=== PATIENT | female | born 1975 | race Two or more races ===

== ENCOUNTER 2025-01-29 15:46 | Emergency (ER) | payer MEDICAID, SELFPAY ==
[2025-01-29 16:20] VITALS: BP 118/72; PULSE 70; RESP 18; TEMP 36.5; O2SAT 96; BMI 37.6
--- NOTE | 2025-01-29 16:32 | XR_ITS ---
Examination: Abdomen sonogram, Limited Date and time: January 29, 2025 1641 hours INDICATIONS: Right upper abdominal pain beginning 4 days ago Technique: Real-time parr scale transabdominal sonographic images of the upper abdomen obtained. Findings: Multiple small gallstones Gallbladder 1.3 cm no edema Common bile duct 0.4 cm Pancreatic head 3.0 cm Liver 16.0 cm fatty infiltration Normal hepatopedal portal venous flow Patent IVC IMPRESSION: Cholelithiasis, negative for cholecystitis
--- NOTE | 2025-01-29 16:32 | PD.EDRME ---
Rapid Medical Screening Exam E Arrival date/time: 01/29/25 15:46 This is a case of 49 year old female came in wiht right upper abd pain for 5 days with n/v/ no diarrhea no constipation no blood in stool Chief Complaint: Abdominal Pain Time Seen by Provider: 01/29/25 16:13 Vital signs: Vital Signs Temperature 97.7 F 01/29/25 16:20 Pulse Rate 70 01/29/25 16:20 Respiratory Rate 18 01/29/25 16:20 Blood Pressure 118/72 01/29/25 16:20 Pulse Oximetry (%) 96 01/29/25 16:20 Oxygen Delivery Method Room Air 01/29/25 16:20
[2025-01-29 16:45] LABS: Basophils % (Auto) 0 % (0-2.5); Eosinophils # (Auto) 0.4 Thou/mm3 (0.0-0.5); Eosinophils % (Auto) 4 % (0-10); Hematocrit 37.6 % (36.0-46.0); Immature Granulocytes % (Auto) 1 % (0-0); Immature Granulocytes Auto 0.06 Thou/mm3 (0.00-0.00); Lymphocytes # (Auto) 2.8 Thou/mm3 (1.0-4.8); Lymphocytes % (Auto) 31 % (10-50); Mean Corpuscular HGB Conc 34.6 g/dl (31.0-37.0); Mean Corpuscular Hemoglobin 29.1 pg (25.0-35.0); Mean Corpuscular Volume 84 fL (80-100); Monocytes # (Auto) 0.8 Thou/mm3 (0.0-0.8); Monocytes % (Auto) 8 % (0-12); Neutrophils # (Auto) 5.1 Thou/mm3 (1.8-7.7); Neutrophils % (Auto) 56 % (37-80); Nucleated Red Blood Cell % 0 /100 WBC (0); Platelet Count 273 Thou/mm3 (140-440); RDW Standard Deviation 44.2 fL (36.4-46.3); Red Blood Count 4.47 Miln/mm3 (4.00-5.20)
[2025-01-29 17:05] LABS: Alanine Aminotransferase 29 U/L (10-49); Albumin, Serum 4.4 gm/dL (3.5-5.0); Albumin/Globulin Ratio 1.6 (1.2-2.2); Alkaline Phosphatase 94 U/L (46-116); Anion Gap 4 (7-16); Aspartate Amino Transferase 26 U/L (0-34); BUN/Creatinine Ratio 23 Ratio (12-20); Bilirubin,Total 0.3 mg/dL (0.3-1.2); Blood Urea Nitrogen 14 mg/dL (9-23); Calcium 8.8 mg/dL (8.3-10.6); Calcium (Corrected) 8.8 mg/dL (8.5-10.1); Carbon Dioxide 28.8 mMol/L (20.0-31.0); Chloride 107 mMol/L (98-107); Creatinine (Component) 0.6 mg/dL (0.6-1.3); Estimated Creatinine Clearance 117.4 mL/min (>60); Globulin 2.7 gm/dL (2.3-3.5); Glucose 80 mg/dL (74-106); Lipase 35 U/L (12-53); Osmolality,Calculated 278 (275-295); Potassium 3.9 mMol/L (3.4-5.1); Sodium 140 mMol/L (136-145); Total Protein 7.1 gm/dL (5.7-8.2); eGFR > 60 See Note
[2025-01-29 17:23] LABS: Collection Type, Urine Clean Catch; RBC,Urine 0 /hpf (0-3)
--- NOTE | 2025-01-29 17:38 | PD.EDABDPN ---
ED Abdominal Pain RME/HPI General Chief Complaint: Abdominal Pain Stated complaint: Abdominal pain Time seen by provider: 01/29/25 16:13 Arrival date/time: Dissection 01/29/25 15:46 This is a case of a 49-year-old female who came in in the emergency room due to the right upper quadrant pain for 3 days associated with nausea vomiting denies any diarrhea constipation or blood in stool Limitations: no limitations RME / HPI RME / HPI narrative: 01/29/25 15:46 This is a case of 49 year old female came in wiht right upper abd pain for 5 days with n/v/ no diarrhea no constipation no blood in stool Related Data Previous Rx's ?Medication ?Instructions ?Recorded hydrocodone 5 mg-acetaminophen 300 1 tab PO Q8H PRN pain #12 tabs 01/29/25 mg tablet ondansetron 4 mg disintegrating 4 mg PO Q8H PRN nausea and 01/29/25 tablet vomiting #20 tabs Allergies Allergy/AdvReac Type Severity Reaction Status Date / Time No Known Drug Allergies Allergy Verified 01/29/25 15:50 Review of Systems Constitutional Constitutional: Reports system reviewed and no additional complaints, except as documented Cardiovascular Cardiovascular: Reports system reviewed and no additional complaints, except as documented Respiratory Respiratory: Reports system reviewed and no additional complaints, except as documented Gastrointestinal Gastrointestinal: Reports as per HPI, Reports abdominal pain, Denies belching, Denies bloating, Denies change in bowel habits, Denies change in stool character, Denies coffee ground emesis, Denies constipation, Denies cramping, Denies diarrhea and Denies dyspepsia Genitourinary Genitourinary: Reports system reviewed and no additional complaints, except as documented Musculoskeletal Musculoskeletal: Reports system reviewed and no additional complaints, except as documented Neurologic Neurologic: Reports system reviewed and no additional complaints, except as documented Past Medical History Social History SMOKING STATUS: Never smoker ED Exam General Limitations: Present no limitations General appearance: Present alert and in no apparent distress Head Head exam: Present atraumatic Eye Eye exam: Present normal appearance, PERRL and EOMI ENT ENT exam: Present normal exam, normal oropharynx and mucous membranes moist Neck Neck exam: Present normal inspection, full ROM and trachea midline Chest Chest inspection: Present normal inspection and symmetric chest wall rise Respiratory Respiratory exam: Present normal lung sounds bilaterally Cardiovascular Cardiovascular exam: Present regular rate, normal rhythm and normal heart sounds Abdominal Exam Abdominal exam: Present soft, tenderness and normal bowel sounds; Absent guarding, rebound, rigidity, diminished bowel sounds, hyperactive bowel sounds, hypoactive bowel sounds, organomegaly, trauma, psoas sign, obturator sign, Taylor's sign, Rovsing's sign or tenderness at McBurney's Point Abdominal tenderness: Present RUQ Extremities Exam Extremities exam: Present normal inspection and full ROM Back Exam Back exam: Present normal inspection and full ROM Neurological Exam Neurological exam: Present alert, oriented X3 and CN II-XII intact Psychiatric Psychiatric exam: Present normal affect and normal mood Skin Skin exam: Present warm, dry, intact and normal color Course Quality Measures none Orders Category Date Time Status US gall bladder Stat Exams 01/29/25 16:32 Completed CBC Stat Lab 01/29/25 16:39 Completed Comprehensive Metabolic Panel Stat Lab 01/29/25 16:39 Completed Lipase Stat Lab 01/29/25 16:39 Completed Urinalysis Stat Lab 01/29/25 14:17 Completed HYDROcodone*/APAP 5/325 [[place] 5/325] Med 01/29/25 17:37 Discontinued 1 tab PO X1 ONE Ketorolac Inj [Toradol Inj] Med 01/29/25 17:37 Discontinued 30 mg IM X1 ONE Ondansetron Odt [Zofran Odt] Med 01/29/25 17:37 Discontinued 4 mg PO X1 ONE Vital Signs Vital signs: Vital Signs Temperature 97.7 F 01/29/25 16:20 Pulse Rate 70 01/29/25 16:20 Respiratory Rate 18 01/29/25 16:20 Blood Pressure 118/72 01/29/25 16:20 Pulse Oximetry (%) 96 01/29/25 16:20 Oxygen Delivery Method Room Air 01/29/25 16:20 Oxygen saturation 96% WNL and in the Abdominal Pain MDM MDM Narrative MDM Narrative:: This is a case of a 49-year-old female who came in the emergency room due to right upper quadrant pain with nausea vomiting patient denies any other symptoms denies any constipation diarrhea or any urinary symptoms physical examination patient is awake alert oriented not in distress not tachypneic not tachycardic afebrile and not hypoxic patient exam were normal except abdominal exam and noted to have tenderness on the right upper quadrant no guarding no rebound no rigidity negative for psoas obturator Rovsing's McBurney's disease no CVA tenderness based on my physical examination consideration is cholelithiasis versus cholecystitis patient blood test showed no leukocytosis no anemia kidney and liver function is normal no electrolyte imbalance ultrasound showed cholelithiasis no cholecystitis patient was given Zofran and [place] here in the emergency room after few minutes patient was reassessed patient abdominal exam was benign and nonsurgical mild tenderness in the right upper quadrant patient pain was improved patient then was discharged with stable condition I have a long discussion with the patient patient will follow-up with PCP to be referred to general surgeon or conduit reamer operator for further evaluation and treatment of cholelithiasis for any worsening symptoms or any emergent concerns she will return emergently here in the emergency room or call [phone] patient will also follow-up with PCP in 2 days for reevaluation and then after this work-related Patient data External records reviewed:: [facility] previous records Clinical information provided by:: patient Social determinants that could affect healthcare access:: none Patient has the following chronic illnesses:: None How is presenting disease/condition affected by chronic disease/condition?: no chronic disease Evaluation data The following diagnostics were reviewed and interpreted by me:: lab results and radiology exam(s) Lab and/or radiology exams considered but not ordered:: ordered Interpretation Summary: Reviewed by me Medications / Prescriptions Medications or Prescriptions considered but not ordered:: Given Medication administrations:: Medication Administration History Discontinued Medications Hydrocodone Bitart/Acetaminophen (Hydrocodone/Apap 5/325 Tablet) 1 tab PO X1 ONE Stop: 01/29/25 17:38 Last Admin: 01/29/25 18:44 Dose: 1 tab Documented By: Ketorolac Tromethamine (Ketorolac Inj 60 Mg/2 Ml Vial) 30 mg IM X1 ONE Stop: 01/29/25 17:38 Last Admin: 01/29/25 18:45 Dose: 30 mg Documented By: Ondansetron HCl (Ondansetron Odt 4 Mg Tabrap) 4 mg PO X1 ONE; Protocol Stop: 01/29/25 17:38 Last Admin: 01/29/25 18:56 Dose: 4 mg Documented By: given Consultations Consultation(s) initiated? (list below): No Diagnosis Differential diagnosis abdominal pain: abdominal pain, gastroenteritis and pancreatitis Most likely diagnosis given after review of the tests above:: Cholelithiasis Admission Indicated Admission indicated?: not indicated Admission Request Was there a request for admission?: No Disposition Plan Disposition Plan: Discharge Discharge Attestation Discharge Attestation: The patient and all family members were given an opportunity to ask questions and understood the discharge instructions. Discharge instructions specifically effects, indications for sooner follow up or return to the emergency department, and the expected course of current diagnosis. Patient condition: Stable Discharge Plan Plan Patient Disposition: HOME (Self Care) Discharge Disposition comment: Stable Prescriptions/Referrals Prescriptions/Med Rec: New hydrocodone-acetaminophen 5-300 mg tablet 1 tab PO Q8H MDD 4 tabs per day PRN (Reason: pain) Qty: 12 0RF ondansetron 4 mg tablet,disintegrating 4 mg PO Q8H PRN (Reason: nausea and vomiting) Qty: 20 0RF Referrals: No Primary/Family,Physician [Primary Care Provider] - In 1 week Problem List Clinical Impression: Cholelithiasis Patient/Caregiver Discharge Instructions Education Materials: Discharge Instructions for ... Additional Instructions: Follow-up with your primary care physician in 2 days for reevaluation and to be referred to conduit reamer operator or general surgeon for further evaluation and treatment of your cholelithiasis no further no cholesterol no fatty foods for any worsening symptoms or any emergent concern return to the emergency room immediately or call [phone] Print Language: Hungarian Stand Alone Forms: Lindsey Award Info., Patient Portal Info Letter NATALIA/RONALD Supervising Physician NATALIA/RONALD Supervising Physician: Dr Villagomez
[2025-01-29 18:05] LABS: Bacteria,Urine Rare; Bilirubin,Urine Negative (Negative); Blood,Urine Negative (Negative); Clarity,Urine Clear (Clear/Hazy); Color,Urine Yellow (Lt Yel-Yel); Glucose, Urine Negative (Negative); Ketones,Urine Negative (Negative); Leukocyte Esterase,Urine Positive (Negative); Nitrite,Urine Negative (Negative); Protein,Urine Trace (Neg - Trace); Squamous Epithelial Cell,Urine 7 /hpf (0-5); WBC,Urine 5 /hpf (0-5)
[2025-01-29] MEDS: HYDROcodone/APAP 5/325 TABLET 1 TAB PO (18:44)
[2025-01-29] MEDS: KETOROLAC INJ 60 MG/2 ML VIAL 30 MG IM (18:45)
[2025-01-29] MEDS: ONDANSETRON ODT 4 MG TABRAP PO (18:56)
== END 2025-01-29 19:00 | disposition home or self-care (01) ==
PROVIDERS: Nurse Practitioner Family; Emergency Provider Family Medicine
DX: K80.20 Calculus of gallbladder without cholecystitis without obstruction (principal)
CPT/HCPCS: 36415; 76705; 80053; 81001; 83690; 85025; 96372; 99284; J1885; Q0162; A9270

== ENCOUNTER 2025-02-09 06:58 | Emergency (ER) | payer MEDICAID, SELFPAY ==
[2025-02-09 07:10] VITALS: BP 129/78; PULSE 66; RESP 18; TEMP 36.3; O2SAT 98; BMI 35.2
--- NOTE | 2025-02-09 07:15 | XR_ITS ---
Examination: CT abdomen and pelvis without contrast. Coronal 3-D reconstructions. Sagittal 2-D reconstructions. Date and time of exam:February 09, 2025 0917 hours INDICATIONS: Nausea vomiting right-sided flank pain beginning 2 weeks ago CTDI: vol (mGy): 9.96 DLP: (mGycm): 550 Technique: Axial images of the abdomen have been obtained, 3 mm slice thickness Intravenous contrast material has not been administered. Low dose protocols were performed. One or more of the following dose reduction techniques were used; automated exposure control, adjustment of the mA and/or KV according to patient size, use of iterative reconstruction technique. Findings: Diffuse fatty infiltration throughout the liver no focal liver or splenic lesions No gallstones No pancreatic or adrenal mass No renal or ureteral calculi, no hydronephrosis 12 mm fat-containing umbilical hernia Aorta normal size Normal appendix No bowel obstruction Mildly prominent right ovary No bladder mass or bladder calculi Osseous structures intact IMPRESSION: No renal or ureteral calculi, no hydronephrosis Normal appendix Recommend pelvic sonography to assess mildly prominent right ovary
--- NOTE | 2025-02-09 07:15 | XR_ITS ---
Examination: Abdomen sonogram, Limited Date and time of exam: Ray 22,025 0733 hours INDICATIONS: Onset right upper abdominal pain beginning 5 days ago Technique: Real-time parr scale transabdominal sonographic images of the upper abdomen obtained. Findings: Normal gallbladder. Common bile duct enlarged 0.6 cm no stones Pancreatic head 3.0 cm Liver 15.5 cm fatty infiltration no focal liver lesions Normal hepatopedal portal venous flow Patent IVC IMPRESSION: Normal gallbladder Mild enlargement common bile duct, clinical correlation advised If biliary colic is a clinical consideration, suggest MRCP follow-up
--- NOTE | 2025-02-09 07:16 | PD.EDRME ---
Rapid Medical Screening Exam E Arrival date/time: 02/09/25 06:58 49-year-old female with recent diagnosis of cholelithiasis presents the emergency department today for complaints of right-sided flank pain and back pain Chief Complaint: Abdominal Pain Time Seen by Provider: 02/09/25 07:12 Vital signs: Vital Signs Temperature 97.4 F 02/09/25 07:10 Pulse Rate 66 02/09/25 07:10 Respiratory Rate 18 02/09/25 07:10 Blood Pressure 129/78 02/09/25 07:10 Pulse Oximetry (%) 98 02/09/25 07:10 Oxygen Delivery Method Room Air 02/09/25 07:10
[2025-02-09] MEDS: METOCLOPRAMIDE INJ 5 MG/ML VIAL 2 ML 10 MG IM (07:30)
[2025-02-09] MEDS: KETOROLAC INJ 30 MG/ML VIAL IM (07:30)
[2025-02-09 08:10] LABS: Basophils % (Auto) 0 % (0-2.5); Eosinophils # (Auto) 0.2 Thou/mm3 (0.0-0.5); Eosinophils % (Auto) 4 % (0-10); Hematocrit 39.4 % (36.0-46.0); Hemoglobin 13.4 g/dL (12.0-16.0); Immature Granulocytes % (Auto) 0 % (0-0); Immature Granulocytes Auto 0.02 Thou/mm3 (0.00-0.00); Lymphocytes # (Auto) 2.3 Thou/mm3 (1.0-4.8); Lymphocytes % (Auto) 40 % (10-50); Mean Corpuscular Hemoglobin 29.6 pg (25.0-35.0); Mean Corpuscular Volume 87 fL (80-100); Monocytes # (Auto) 0.5 Thou/mm3 (0.0-0.8); Monocytes % (Auto) 8 % (0-12); Neutrophils # (Auto) 2.7 Thou/mm3 (1.8-7.7); Neutrophils % (Auto) 47 % (37-80); Nucleated Red Blood Cell % 0 /100 WBC (0); Platelet Count 257 Thou/mm3 (140-440); Red Blood Count 4.52 Miln/mm3 (4.00-5.20); White Blood Count 5.7 Thou/mm3 (3.6-11.0)
[2025-02-09 08:15] LABS: Collection Type, Urine Clean Catch
[2025-02-09 08:29] LABS: Alanine Aminotransferase 30 U/L (10-49); Albumin, Serum 4.3 gm/dL (3.5-5.0); Albumin/Globulin Ratio 1.5 (1.2-2.2); Alkaline Phosphatase 97 U/L (46-116); Anion Gap 7 (7-16); Aspartate Amino Transferase 23 U/L (0-34); BUN/Creatinine Ratio 23 Ratio (12-20); Bilirubin,Total 0.5 mg/dL (0.3-1.2); Blood Urea Nitrogen 14 mg/dL (9-23); Calcium 8.7 mg/dL (8.3-10.6); Calcium (Corrected) 8.7 mg/dL (8.5-10.1); Carbon Dioxide 26.4 mMol/L (20.0-31.0); Chloride 106 mMol/L (98-107); Creatinine (Component) 0.6 mg/dL (0.6-1.3); Estimated Creatinine Clearance 122.1 mL/min (>60); Globulin 2.9 gm/dL (2.3-3.5); Glucose 104 mg/dL (74-106); Lipase 33 U/L (12-53); Osmolality,Calculated 278 (275-295); Sodium 139 mMol/L (136-145); Total Protein 7.2 gm/dL (5.7-8.2); eGFR > 60 See Note
[2025-02-09 08:30] LABS: HCG Qualitative,Urine Negative
[2025-02-09 08:36] LABS: Bilirubin,Urine Negative (Negative); Blood,Urine 2+ (Negative); Clarity,Urine Clear (Clear/Hazy); Color,Urine Lt-Yellow (Lt Yel-Yel); Culture Indicated,Urine Not Indicated; Glucose, Urine Negative (Negative); Ketones,Urine Negative (Negative); Leukocyte Esterase,Urine Negative (Negative); Nitrite,Urine Negative (Negative); Protein,Urine Negative (Neg - Trace); RBC,Urine 14 /hpf (0-3); Specific Gravity,Urine 1.013 (1.001-1.035); Squamous Epithelial Cell,Urine 2 /hpf (0-5); Urobilinogen,Urine Negative mg/dL (0.0-1.0); WBC,Urine 1 /hpf (0-5)
[2025-02-09 11:14] VITALS: BP 110/73; PULSE 63; RESP 18; TEMP 36.5; O2SAT 100
--- NOTE | 2025-02-09 11:34 | PD.EDADULT ---
ED General RME/HPI General Chief complaint: Abdominal Pain Stated complaint: ABD PAIN Time Seen by Provider: 02/09/25 07:12 Arrival date/time: 02/09/25 06:58 CC: Right upper quadrant abdominal pain with radiation to the back HPI ongoing for the past several weeks was seen here on January 29 for similar complaint. At that time she was diagnosed with cholelithiasis. Patient is weak alert oriented currently is no pain no nausea no vomiting. Daughter at bedside. RME / HPI RME / HPI narrative: 02/09/25 06:58 49-year-old female with recent diagnosis of cholelithiasis presents the emergency department today for complaints of right-sided flank pain and back pain Related Data Previous Rx's ?Medication ?Instructions ?Recorded hydrocodone 5 mg-acetaminophen 300 1 tab PO Q8H PRN pain #12 tabs 01/29/25 mg tablet ondansetron 4 mg disintegrating 4 mg PO Q8H PRN nausea and 01/29/25 tablet vomiting #20 tabs hydrocodone 5 mg-acetaminophen 325 1 tab PO BID PRN pain #10 tabs 01/30/25 mg tablet famotidine 20 mg tablet 20 mg PO QDAY #30 tabs 02/09/25 meloxicam 7.5 mg tablet 7.5 mg PO QDAY #10 tabs 02/09/25 Allergies Allergy/AdvReac Type Severity Reaction Status Date / Time No Known Drug Allergies Allergy Verified 02/09/25 06:59 Review of Systems Review of Systems Narrative Review of Systems: GEN: No fever, no chills, no weight loss EYES: No discharge, no visual changes, no pain HEENT: No ear pain, no congestion, no sore throat PULM: No shortness of breath, no cough, no congestion CV: No chest pain, no dyspnea on exertion, no palpitations GI: No nausea, no vomiting, no diarrhea, + pain, no constipation : No frequency, no urgency, no dysuria MUSC/SKEL: No joint pain, no back pain SKIN: No rash PSYCH: No hallucinations, no depression HEME/LYMPH: No easy bleeding or bruising tendencies NEURO: No weakness, no headache Past Medical History Social History SMOKING STATUS: Never smoker ED Exam Narrative Physical exam: [General: Obese not in any acute distress Head normocephalic HEENT: Within acceptable limits Neck is supple nontender Chest equal chest rise nontender to palpation Respiratory: Clear to auscultation no wheezes crackles or rubs CV: Rate rhythm is regular no murmurs rubs or clicks Abdomen is distended secondary to body habitus soft nontender no masses positive bowel sounds all 4 quadrants Back: No CVA tenderness no spinous process tenderness from cervical spine thoracic and lumbar spine Skin: Intact no petechiae rash induration ulceration or crepitus Extremities: Moving all extremity against resistance cap refill less than 2 seconds neurosensory intact Neuro: Awake alert oriented x3 Glascow coma 15 no focal deficits] Course Course Course Narrative: Patient has not followed up with GI or surgery as recommended in her last visit. Patient advised to switch to a bland diet follow-up with her primary care doctor get a referral to the GI specialist and if there is worsening of symptoms she can return the emergency room. Will place the patient on famotidine and give her meloxicam for pain. Quality Measures none Orders Category Date Time Status CT abdomen pelvis wo con Stat Exams 02/09/25 07:15 Completed US gall bladder Stat Exams 02/09/25 07:15 Completed CBC Stat Lab 02/09/25 07:47 Completed Comprehensive Metabolic Panel Stat Lab 02/09/25 07:47 Completed HCG Qualitative,Urine Stat Lab 02/09/25 08:27 Completed Lipase Stat Lab 02/09/25 07:47 Completed UA, C/S IF [Urinalysis, C/S if Indicated] Stat Lab 02/09/25 08:05 Completed Ketorolac Inj [Toradol Inj] Med 02/09/25 07:15 Discontinued 30 mg IM X1 ONE Metoclopramide Inj [Reglan Inj] Med 02/09/25 07:15 Discontinued 10 mg IM X1 ONE Vital Signs Vital signs: Vital Signs Temperature 97.4 F 02/09/25 07:10 Pulse Rate 66 02/09/25 07:10 Respiratory Rate 18 02/09/25 07:10 Blood Pressure 129/78 02/09/25 07:10 Pulse Oximetry (%) 98 02/09/25 07:10 Oxygen Delivery Method Room Air 02/09/25 07:10 Discharge Plan Plan Patient Disposition: HOME (Self Care) Patient condition on transfer: Stable Prescriptions/Referrals Prescriptions/Med Rec: New meloxicam 7.5 mg tablet 7.5 mg PO QDAY Qty: 10 0RF famotidine 20 mg tablet 20 mg PO QDAY Qty: 30 0RF No Action hydrocodone-acetaminophen 5-300 mg tablet 1 tab PO Q8H MDD 4 tabs per day PRN (Reason: pain) Qty: 12 0RF ondansetron 4 mg tablet,disintegrating 4 mg PO Q8H PRN (Reason: nausea and vomiting) Qty: 20 0RF hydrocodone-acetaminophen 5-325 mg tablet 1 tab PO BID MDD 10 PRN (Reason: pain) Qty: 10 0RF Referrals: [facility] WOOD CAULKER,Selma Huerta NP [Primary Care Provider] - In 1 week Boo Monroy MD [Physician] - In 1 week Problem List Clinical Impression: Right upper quadrant abdominal pain Patient/Caregiver Discharge Instructions Education Materials: Abdominal Pain, ED Diet, [place] (Adult) Additional Instructions: Take the medications as prescribed, follow-up with your primary care doctor get a referral to the GI specialist listed above [facility] avoid all greasy spicy fatty foods. Avoid eating for 2 hours before going to bed at nighttime. Print Language: Icelandic Stand Alone Forms: [employer] Award Info., Patient Portal Info Letter, Work/School Release PA/DIRECTOR OF SAFETY AND SECURITY Supervising Physician PA/DIRECTOR OF SAFETY AND SECURITY Supervising Physician: Boo Ruiz ENP [facility] Clinical Information Provided by: patient and family Medical Records reviewed [facility] Meds/Rx considered, not ordered None Labs/Rad/Tests considered, not ordered None Chronic Illness/Social Conditions Explain: Obesity EKG EKG not done Labs Labs: interpreted by nj Lab(s) Interpretation(s): CBC shows no acute leukocytosis anemia thrombocytopenia CMP shows no acute electrolyte imbalances renal impairment transaminitis or T. bili elevation Lipase of 33 Urine is 2+ blood no other findings Urine is negative Imaging Imaging interpretation: interpreted by nj Imaging Interpretation(s): Ultrasound the gallbladder shows no cholelithiasis, dilated CBD but no stones. CT shows no acute finding requires emergent or immediate intervention all is read by the radiologist. Medication Administration(s) Medication Administration History Discontinued Medications Ketorolac Tromethamine (Ketorolac Inj 30 Mg/Ml Vial) 30 mg IM X1 ONE Stop: 02/09/25 07:16 Last Admin: 02/09/25 07:30 Dose: 30 mg Documented By: ERSI Metoclopramide HCl (Metoclopramide Inj 5 Mg/Ml Vial 2 Ml) 10 mg IM X1 ONE; Protocol Stop: 02/09/25 07:16 Last Admin: 02/09/25 07:30 Dose: 10 mg Documented By: ERIS
== END 2025-02-09 11:51 | disposition home or self-care (01) ==
PROVIDERS: Nurse Practitioner Primary Care; Emergency Provider Emergency Medicine; PCP Nurse Practitioner Family
DX: R10.11 Right upper quadrant pain (principal)
CPT/HCPCS: 36415; 74176; 76705; 80053; 81001; 81025; 83690; 85025; 96372; 99284; J1885; J2765